=== PATIENT | female | born 1935 | race Caucasian/White ===

== ENCOUNTER 2025-04-25 15:01 | Outpatient (AMB) | payer MEDICARE, SELFPAY ==
--- NOTE | 2025-04-25 15:13 | A.OFFVIS_ITS ---
Intake Visit Reasons: 6 months follow up Allergies No Known Allergies Allergy (Verified 12/27/24 08:34) HPI Comments Details: 89 years old right-handed woman with parkinsomism and dementia, who probably suffered from Lewy body dementia. She is presenting for a follow-up visit for management of Parkinson's disease. She lives alone and is determined to remain in her own home. She sometimes cooks but does not drive. The patient reports sometimes forgetting to take her medications. Her regimen includes carbidopa-levodopa, amantadine, quetiapine, and trazodone. Associated with her condition, she has experienced visual hallucinations, which have reportedly improved and are less bothersome since her quetiapine dose was increased to three times a day. [facility] Medical History (Updated 04/25/25 @ 15:15 by Cassie Foster MD) Dementia with Lewy bodies Carpal tunnel syndrome Osteoarthritis Parkinson disease Review of Systems Narrative - Psychiatric: Reports visual hallucinations, which are less bothersome recently. - Neurological: Reports memory issues, specifically forgetting to take her medications. Physical Exam Neuro Other: Mental Status: Alert and oriented to person, place, and time. Normal attention. Normal spontaneous speech, fluency, and comprehension. Cranial Nerves: CN II: Visual interiano full to confrontation, visual acuity intact. CN III, IV, : Pupils equal, round, reactive to light and accommodation. Extraocular movements are normal. CN V: Facial sensation is normal. CN VII: Facial movements symmetrical. CN VIII: Hearing intact to bedside conversation is normal. CN IX, X: Palate elevates symmetrically. CN XI: Shoulder shrug and head turn symmetrical. CN XII: Tongue midline without atrophy or fasciculations. Extrapyramidal: Full facial expressions and blinking. No rigidity. Movements are appropriate with no tremor or abnormality. Speech: Normal; no dysarthria or tremor. 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 Code(s): G31.83 - Neurocognitive disorder with Lewy bodies; F02.80 - Dementia in other diseases classified elsewhere, unspecified severity, without behavioral disturbance, psychotic disturbance, mood disturbance, and anxiety Category: Medical Qualifiers: Dementia severity: moderate Dementia behavioral or psychological symptom: without behavioral, psychotic, or mood disturbance or anxiety Qualified Code(s): G31.83 - Neurocognitive disorder with Lewy bodies; F02.B0 - Dementia in other diseases classified elsewhere, moderate, without behavioral disturbance, psychotic disturbance, mood disturbance, and anxiety Plan Impression: 89 years old woman with parkinsonism, cognitive difficulties, and behavioral symptom. Overall presentation is suggestive of dementia with Lewy body disease. Recommendations: 1. Carbidopa/levodopa 25/100, 1 tablet every 3 hours, up to 6 a day. 2. Amantadine 100 mg 1 in the morning and 1 in noontime 3. Quetiapine 25 mg 2-3 a day 4. Trazodone 50 mg 1 at bedtime as needed I discussed the patient's condition with her and her daughter, noting that she is moderately affected by Parkinson's disease. I reassured her that the disease is not going to be fatal but will remain a nuisance. We reviewed her medication regimen, noting the improvement in hallucinations with the increased dose of quetiapine to three per day. I confirmed that refills for all her medications will be sent to her pharmacy. Due to her forgetfulness, I advised her to avoid using the stove. We agreed to a follow-up visit in six months. Medications: Changed From amantadine HCl 100 mg PO DAILY 90 days 90 caps 0RF To amantadine HCl 100 mg PO BID 180 caps 1RF 90 days Refilled trazodone 50 mg PO DAILY PRN 90 tabs 1RF sleep 90 days carbidopa-levodopa 25-100 mg 1 tab orally q3h up to 6/day; 540 tabs 1RF 90 days quetiapine 50 - 75 mg (2 - 3 x 25 mg) PO BEDTIME 270 tabs 1RF 90 days Coding Level of Care Code Est Pt Level 4 (88280) Diagnoses Moderate Lewy body dementia without behavioral disturbance, psychotic disturbance, mood disturbance, or anxiety G31.83; F02.B0 Dementia severity: moderate Dementia behavioral or psychological symptom: without behavioral, psychotic, or mood disturbance or anxiety
--- OUTSIDE RECORDS SUMMARY | 2025-04-25 20:01 | XMS_ITS | Clinical Summary ---
Author Organization [facility] Address [address] [address] Phone Care Team Providers Care Research Program Coordinator Name Role Phone Tiago Samson MD Primary Care Provider + Allergies Active Allergy Reactions Criticality Noted Date Comments Atenolol 10/02/2022 Other reaction(s): Tight Chest Cat/Feline Products 10/02/2022 Codeine Swelling 10/02/2022 Dog Dander 10/02/2022 Epinephrine Palpitations Low 10/02/2022 Famotidine 10/02/2022 Other reaction(s): Face/Lip Sweling Horse Dander 10/02/2022 Metoprolol Itching 10/02/2022 Nebivolol 10/02/2022 Other reaction(s): Fever, BP Problems Nitrofurantoin Monohyd/M-Cryst Wheezing 10/02/2022 Omeprazole Swelling 10/02/2022 Peanut Swelling 10/02/2022 Procaine Palpitations Low 10/02/2022 Ranitidine Hcl 10/02/2022 Other reaction(s): Anxiety, Tingling Medications losartan (COZAAR) 50 MG tablet Take 1 tablet by mouth 2 (two) times a day. 09/09/2022 Active melatonin 3 mg Tab Take 3 mg by mouth. 12/01/2021 Active pantoprazole (PROTONIX) 20 MG tablet Take 20 mg by mouth. 11/28/2021 Active polyethylene glycol 3350 (MIRALAX ORAL) Take 17 g by mouth. 12/01/2021 Active sennosides/docu sate sodium (SENOKOT-S ORAL) Take by mouth. 12/01/2021 Active simethicone (MYLICON) 80 mg chewable tablet Take 80 mg by mouth. 12/01/2021 Active carbidopa-levod opa (SINEMET) 25-100 mg per tablet TAKE 1 TABLET BY MOUTH 6 TIMES A DAY 09/01/2022 Active carbidopa-levod opa (SINEMET) 25-100 mg per tablet Take by mouth. 12/01/2021 Active aspirin 81 MG EC tablet Take 81 mg by mouth. 12/01/2021 Active amantadine HCl (SYMMETREL) 100 mg capsule Take 1 capsule by mouth 2 (two) times a day. 09/08/2022 Active Active Problems No known active problems Social History Tobacco Use Types Packs/Day Years Used Date Smoking Tobacco: Unknown Tobacco Cessation:Counseling Given: No Education Answer Date Recorded Are you interested in more education? Not on rocky e 10/02/2022 Are you concerned about learning? Not on file 10/02/2022 No 10/02/2022 No 10/02/2022 Digital Access Answer Date Recorded No 10/02/2022 No 10/02/2022 No 10/02/2022 Reliable internet access at home? Not on file 10/02/2022 Device with a working camera? Not on file Comments Unknown Sex and Gender Information Value Date Recorded Sex Assigned at Not on file Legal Sex Female 9:27 AM EDT Gender Identity Not on file Sexual Orientation Not on file Last Filed Vital Signs Vital Sign Reading Time Taken Comments Blood Pressure 124/61 10/02/2022 10:05 AM EDT Pulse 62 10/02/2022 10:05 AM EDT Temperature 36.7 C (98 F) 10/02/2022 10:05 AM EDT Respiratory Rate 20 10/02/2022 10:05 AM EDT Oxygen Saturation 100% 10/02/2022 10:05 AM EDT Inhaled Oxygen Concentration - - Weight 61.2 kg (135 lb) 10/02/2022 10:05 AM EDT Height 157.5 cm (5' 2 ) 10/02/2022 10:05 AM EDT Body Mass Index 24.69 10/02/2022 10:05 AM EDT Plan of Treatment Health Maintenance Due Date Last Done Comments CREATININE LEVEL 1937 POTASSIUM LEVEL 1937 DEPRESSION SCREENING 1949 OSTEOPOROSIS SCREENING INITIAL (ONE-TIME) 2002 RSV VACCINE (1 - 1-dose 75+ series) 2012 ZOSTER VACCINES (2 of 3) 07/19/2012 05/24/2012 PNEUMOCOCCAL VACCINES (50+ years) (2 of 2 - PCV20 or PCV21) 08/18/2016 08/19/2015 INFLUENZA VACCINE (#1) 2024 , 02/27/2021, 02/10/2020, Additional history exists COVID-19 VACCINE ( season) 2025 03/21/2021, 07/04/2020, 06/13/2020 Adult Td,Tdap Booster 09/17/2032 09/17/2022, 022 HEPATITIS A VACCINES Aged Out No long er eligible based on patient's age to complete this topic HIB VACCINES Aged Out No longer eligi ble based on patient's age to complete this topic MENINGOCOCCAL VACCINES (ACWY) Aged Out No longer eligible based on patient's age to complete this topic MENINGOCOCCAL VACCINES (B) Aged Out N o longer eligible based on patient's age to complete this topic Medical Devices Not on file Insurance MEDICARE PART A & B [employer] SU[employer]MENT MEDICARE PART A & B [employer] SU[employer] MEDICARE PART A & B [employer] SU[employer] MEDICARE PART A & B [employer] SU[employer] MEDICARE PART A & B [employer] SUPP[employer]MENT MEDICARE PART A & B [facility] MEDEX SUPPLEMENT Care Teams Research Program Coordinator Relationship Specialty Start Date End Date Tiago Samson MD [address] [facility] [address] [place] [id number] PCP - General Internal Medicine 10/02/22 Additional Source Comments The information contained in this document represents components of the legal health record. It is not the complete legal health record.[facility]
== END 2025-04-25 15:24 | disposition home or self-care (01) ==
PROVIDERS: PCP Internal Medicine; Visit Provider Psychiatry & Neurology Neurology
DX: G31.83 Neurocognitive disorder with Lewy bodies (principal); F02.B0 Dementia in other diseases classified elsewhere, moderate, without behavioral disturbance, psychotic disturbance, mood disturbance, and anxiety
CPT/HCPCS: 99214

== ENCOUNTER → 2025-04-25 15:01 | Outpatient (BNVA) | payer MEDICARE, SELFPAY | PROVIDERS: PCP Internal Medicine; Visit Provider Psychiatry & Neurology Neurology | DX: G31.83 Neurocognitive disorder with Lewy bodies (principal); F02.B0 Dementia in other diseases classified elsewhere, moderate, without behavioral disturbance, psychotic disturbance, mood disturbance, and anxiety | CPT/HCPCS: 99212 ==